=== PATIENT | female | born 1990 | race American Indian/Alaskan Native ===

== ENCOUNTER 2016-11-01 05:05 | Emergency (ER) | payer OTHER ==
[2016-11-01 06:09] VITALS: BP 129/82
[2016-11-01 06:46] LABS: Basophils % (Auto) 0.4 % (0.0-1.8); Eosinophils % (Auto) 3.3 % (0.0-4.3); Hematocrit 38.2 % (30.3-42.9); Hemoglobin 13.3 gm/dl (10.1-14.3); Mean Corpuscular HGB Conc 35 % (30-34); Mean Corpuscular Hemoglobin 29 pg (28-32); Mean Corpuscular Volume 82 fl (79-97); Platelet Count 270 K/mm3 (140-440); Red Blood Count 4.64 M/mm3 (3.65-5.03); White Blood Count 8.5 K/mm3 (4.5-11.0)
[2016-11-01 07:10] LABS: Bacteria,Urine 1+ /HPF (Negative); Bilirubin,Urine NEG (Negative); Blood,Urine NEG (Negative); Ketones,Urine NEG (Negative); Leukocyte Esterase,Urine LG (Negative); Mucus,Urine FEW /HPF; Nitrite,Urine POS (Negative); Protein,Urine <15 mg/dL mg/dL (Negative); Urobilinogen,Urine < 2.0 mg/dL (<2.0)
[2016-11-01 07:12] LABS: Alanine Aminotransferase 18 units/L (7-56); Albumin 4.2 g/dL (3.9-5); Albumin/Globulin Ratio 1.4 %; Alkaline Phosphatase 81 units/L (35-129); Anion Gap 19 mmol/L; Blood Urea Nitrogen 10 mg/dL (7-17); Calcium 9.3 mg/dL (8.4-10.2); Carbon Dioxide 23 mmol/L (22-30); Chloride 100.4 mmol/L (98-107); Glucose 97 mg/dL (65-100); Lipase 22 units/L (13-60); Potassium 4.3 mmol/L (3.6-5.0); Sodium 138 mmol/L (137-145); Total Protein 7.3 g/dL (6.3-8.2)
--- NOTE | 2016-11-01 09:54 | Emergency Department Report ---
ED Abdominal Pain HPI - General Chief Complaint: Abdominal Pain Stated Complaint: ABDOMINAL PAIN Time Seen by Provider: 11/01/16 09:49 Source: patient Mode of arrival: Ambulatory Limitations: No Limitations - History of Present Illness Location: suprapubic Radiation: suprapubic Migration to: no migration Severity scale (0 -10): 3 Quality: cramping, burning Improves With: nothing Associated Symptoms: nausea, vomiting, dysuria, hematuria. denies: diarrhea, anorexia, syncope - Related Data Home Medications Medication Instructions Recorded Confirmed Last Taken Albuterol Sulfate [Albuterol 0.63%] 3 ml IH PRN PRN 03/15/14 03/15/14 02/08/14 Previous Rx's Medication Instructions Recorded Last Taken Type HYDROcodone/APAP 5-325 [[place] 1 each PO Q6HR PRN #14 tablet 06/23/14 Unknown Rx 5-325 mg TAB] Ondansetron [Zofran] 4 mg PO Q6HR PRN #20 tablet 06/23/14 Unknown Rx Cetirizine HCl [ZyrTEC] 10 mg PO QDAY #30 capsule 06/06/16 Unknown Rx Fluticasone [Flonase] 1 spray NS QDAY #1 bottle 06/06/16 Unknown Rx Ibuprofen [Motrin 600 MG tab] 600 mg PO Q8H PRN #30 tablet 06/06/16 Unknown Rx Phenazopyridine [Pyridium] 200 mg PO BID #8 tab 11/01/16 Unknown Rx Sulfamethoxazole/Trimethoprim 1 each PO BID #14 tablet 11/01/16 Unknown Rx [Bactrim DS TAB] Allergies Allergy/AdvReac Type Severity Reaction Status Date / Time banana [Banana] Allergy Itching Verified 03/15/14 19:53 stephany flavor Allergy Rash Verified 03/15/14 19:53 onion Allergy Itching Verified 03/15/14 19:53 peanut Allergy Shortness Verified 03/15/14 19:53 of Breath ED Review of Systems ROS: Stated complaint: ABDOMINAL PAIN Other details as noted in HPI Constitutional: chills, fever Eyes: denies: eye pain, eye discharge, vision change ENT: denies: ear pain, throat pain Respiratory: denies: cough, shortness of breath, wheezing Cardiovascular: denies: chest pain, palpitations Endocrine: no symptoms reported Gastrointestinal: abdominal pain, nausea, vomiting. denies: diarrhea Genitourinary: urgency, dysuria, hematuria. denies: discharge, abnormal menses , dyspareunia Musculoskeletal: denies: back pain, joint swelling, arthralgia Skin: denies: rash, lesions Neurological: denies: headache, weakness, paresthesias Psychiatric: denies: anxiety, depression Hematological/Lymphatic: denies: easy bleeding, easy bruising ED Past Medical Hx - Past Medical History Previous Medical History?: Yes Hx Hypertension: No Hx Congestive Heart Failure: No Hx Diabetes: No Hx Deep Vein Thrombosis: No Hx Renal Disease: No Hx Sickle Cell Disease: No Hx Seizures: No Hx Asthma: Yes (Albuterol inhaler.) Hx COPD: No Hx HIV: No - Surgical History Past Surgical History?: No - Social History Smoking Status: Never Smoker - Medications Home Medications: Home Medications Medication Instructions Recorded Confirmed Last Taken Type Albuterol Sulfate [Albuterol 0.63%] 3 ml IH PRN PRN 03/15/14 03/15/14 02/08/14 History HYDROcodone/APAP 5-325 [[place] 1 each PO Q6HR PRN #14 tablet 06/23/14 Unknown Rx 5-325 mg TAB] Ondansetron [Zofran] 4 mg PO Q6HR PRN #20 tablet 06/23/14 Unknown Rx Cetirizine HCl [ZyrTEC] 10 mg PO QDAY #30 capsule 06/06/16 Unknown Rx Fluticasone [Flonase] 1 spray NS QDAY #1 bottle 06/06/16 Unknown Rx Ibuprofen [Motrin 600 MG tab] 600 mg PO Q8H PRN #30 tablet 06/06/16 Unknown Rx Phenazopyridine [Pyridium] 200 mg PO BID #8 tab 11/01/16 Unknown Rx Sulfamethoxazole/Trimethoprim 1 each PO BID #14 tablet 11/01/16 Unknown Rx [Bactrim DS TAB] ED Physical Exam - General Limitations: No Limitations General appearance: alert, in no apparent distress - Head Head exam: Present: atraumatic, normocephalic - Eye Eye exam: Present: normal appearance - ENT ENT exam: Present: mucous membranes moist - Neck Neck exam: Present: normal inspection - Respiratory Respiratory exam: Present: normal lung sounds bilaterally. Absent: respiratory distress - Cardiovascular Cardiovascular Exam: Present: regular rate, normal rhythm. Absent: systolic murmur, diastolic murmur, rubs, gallop - GI/Abdominal GI/Abdominal exam: Present: soft, tenderness (mild suprapubic tenderness on percussion), normal bowel sounds. Absent: distended, guarding, rebound, rigid - Rectal Rectal exam: Present: deferred - External exam: Present: other (deferred) - Extremities Exam Extremities exam: Present: normal inspection - Back Exam Back exam: Present: normal inspection. Absent: CVA tenderness (R), CVA tenderness (L) - Neurological Exam Neurological exam: Present: alert, oriented X3 - Psychiatric Psychiatric exam: Present: normal affect, normal mood - Skin Skin exam: Present: warm, dry, intact, normal color. Absent: rash ED Course Vital Signs 11/01/16 06:06 Temperature 98.1 F Pulse Rate 104 H Respiratory 18 Rate Blood Pressure 129/82 O2 Sat by Pulse 100 Oximetry ED Medical Decision Making - Lab Data Result diagrams: 11/01/16 06:35 11/01/16 06:35 Critical care attestation.: If time is entered above; I have spent that time in minutes in the direct care of this critically ill patient, excluding procedure time. ED Disposition Clinical Impression: Cystitis Disposition: DISCHARGED TO HOME OR SELFCARE Is pt being admited?: No Condition: Stable Instructions: Abdominal Pain (ED) Prescriptions: Phenazopyridine [Pyridium] 200 mg PO BID #8 tab Sulfamethoxazole/Trimethoprim [Bactrim DS TAB] 1 each PO BID #14 tablet Referrals: PRIMARY CARE, [Primary Care Provider] - 3-5 Days Forms: Work/School Release Form(ED)
== END 2016-11-01 10:10 | disposition home or self-care (01) ==
LOC: ED 05:05
DX: N30.90 Cystitis, unspecified without hematuria (principal); J45.909 Unspecified asthma, uncomplicated; Z91.018 Allergy to other foods; Z91.010 Allergy to peanuts
CPT/HCPCS: 36415; 80053; 81001; 81025; 83690; 85025; 99283

== ENCOUNTER 2017-02-07 14:57 | Emergency (ER) | payer SELFPAY ==
[2017-02-07 15:21] VITALS: BP 143/97
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
[2017-02-07 15:46] LABS: Basophils % (Auto) 0.5 % (0.0-1.8); Eosinophils % (Auto) 3.5 % (0.0-4.3); Hematocrit 40.5 % (30.3-42.9); Hemoglobin 13.5 gm/dl (10.1-14.3); Mean Corpuscular HGB Conc 33 % (30-34); Mean Corpuscular Hemoglobin 28 pg (28-32); Mean Corpuscular Volume 83 fl (79-97); Platelet Count 272 K/mm3 (140-440); Red Blood Count 4.88 M/mm3 (3.65-5.03); Red Cell Distribution Width 13.6 % (13.2-15.2); White Blood Count 9.6 K/mm3 (4.5-11.0)
[2017-02-07 15:56] LABS: INR 0.93 (0.87-1.13)
[2017-02-07 15:57] LABS: Partial Thromboplastin Time 28.5 Sec. (24.2-36.6)
[2017-02-07 16:03] LABS: Alanine Aminotransferase 13 units/L (7-56); Albumin 4.6 g/dL (3.9-5); Albumin/Globulin Ratio 1.4 %; Alkaline Phosphatase 59 units/L (35-129); Anion Gap 17 mmol/L; BUN/Creatinine Ratio 16.66; Blood Urea Nitrogen 15 mg/dL (7-17); Calcium 9.6 mg/dL (8.4-10.2); Carbon Dioxide 26 mmol/L (22-30); Chloride 101.6 mmol/L (98-107); Glucose 80 mg/dL (65-100); Sodium 141 mmol/L (137-145); Total Protein 7.8 g/dL (6.3-8.2)
[2017-02-07 17:52] LABS: Urine Drugs of Abuse Note Disclamer
--- NOTE | 2017-02-07 17:54 | Cat Scan Report ---
FINAL REPORT EXAM: CT HEAD/BRAIN WO CON HISTORY: chi, dizziness, syncope TECHNIQUE: CT examination of the head without IV contrast PRIORS: None FINDINGS: Slight mucosal thickening left maxillary sinus and moderate mucosal thickening left ethmoid sinus.No acute air-fluid level visualized in the included air-filled sinuses. Bone windows demonstrate no acute fracture. The brain is without mass, mass effect, hemorrhage, or acute infarct. There is no extra-axial intracranial bleed, brain bleed, or midline shift. The ventricles and sulci are age-appropriate. IMPRESSION: No acute CVA, intracranial bleed, or brain mass
[2017-02-07 18:05] LABS: Bacteria,Urine 2+ /HPF (Negative); Bilirubin,Urine NEG (Negative); Blood,Urine SM (Negative); Ketones,Urine NEG (Negative); Leukocyte Esterase,Urine TR (Negative); Mucus,Urine 1+ /HPF; Nitrite,Urine NEG (Negative); Protein,Urine <15 mg/dL mg/dL (Negative); Urobilinogen,Urine < 2.0 mg/dL (<2.0)
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
--- NOTE | 2017-02-10 00:31 | ED Elopement Review ---
ED Pt Elopement review - Results review Lab results: Laboratory Tests 02/07/17 02/07/17 02/07/17 15:37 15:37 15:37 WBC 9.6 RBC 4.88 Hgb 13.5 Hct 40.5 MCV 83 MCH 28 MCHC 33 RDW 13.6 Plt Count 272 Lymph % (Auto) 29.0 [place] % (Auto) 4.9 Eos % (Auto) 3.5 Baso % (Auto) 0.5 Lymph # 2.8 [place] # 0.5 Eos # 0.3 Baso # 0.0 Seg Neutrophils % 62.1 Seg Neutrophils # 5.9 PT 12.9 INR 0.93 APTT 28.5 Sodium 141 Potassium 4.0 Chloride 101.6 Carbon Dioxide 26 Anion Gap 17 BUN 15 Creatinine 0.9 Estimated GFR > 60 BUN/Creatinine Ratio 16.66 Glucose 80 Calcium 9.6 Total Bilirubin 0.20 AST 16 ALT 13 Alkaline Phosphatase 59 Total Protein 7.8 Albumin 4.6 Albumin/Globulin Ratio 1.4 HCG, Qual Urine Color Urine Turbidity Urine pH Ur Specific [place] Urine Protein Urine Glucose (UA) Urine Ketones Urine Blood Urine Nitrite Urine Bilirubin Urine Urobilinogen Ur Leukocyte Esterase Urine WBC (Auto) Urine RBC (Auto) U Epithel Cells (Auto) Urine Bacteria (Auto) Urine Mucus Urine Opiates Screen Urine Methadone Screen Ur Barbiturates Screen Ur Phencyclidine Scrn Ur Amphetamines Screen U Benzodiazepines Scrn Urine Cocaine Screen U Marijuana (THC) Screen Drugs of Abuse Note Plasma/Serum Alcohol 02/07/17 02/07/17 02/07/17 15:37 15:37 17:45 WBC RBC Hgb Hct MCV MCH MCHC RDW Plt Count Lymph % (Auto) [place] % (Auto) Eos % (Auto) Baso % (Auto) Lymph # [place] # Eos # Baso # Seg Neutrophils % Seg Neutrophils # PT INR APTT Sodium Potassium Chloride Carbon Dioxide Anion Gap BUN Creatinine Estimated GFR BUN/Creatinine Ratio Glucose Calcium Total Bilirubin AST ALT Alkaline Phosphatase Total Protein Albumin Albumin/Globulin Ratio HCG, Qual Negative Urine Color Yellow Urine Turbidity Slightly-cloudy Urine pH 5.0 Ur Specific [place] 1.017 Urine Protein <15 mg/dl Urine Glucose (UA) Neg Urine Ketones Neg Urine Blood Sm Urine Nitrite Neg Urine Bilirubin Neg Urine Urobilinogen < 2.0 Ur Leukocyte Esterase Tr Urine WBC (Auto) 7.0 H Urine RBC (Auto) 2.0 U Epithel Cells (Auto) 6.0 Urine Bacteria (Auto) 2+ Urine Mucus 1+ Urine Opiates Screen Urine Methadone Screen Ur Barbiturates Screen Ur Phencyclidine Scrn Ur Amphetamines Screen U Benzodiazepines Scrn Urine Cocaine Screen U Marijuana (THC) Screen Drugs of Abuse Note Plasma/Serum Alcohol < 0.01 02/07/17 17:45 WBC RBC Hgb Hct MCV MCH MCHC RDW Plt Count Lymph % (Auto) [place] % (Auto) Eos % (Auto) Baso % (Auto) Lymph # [place] # Eos # Baso # Seg Neutrophils % Seg Neutrophils # PT INR APTT Sodium Potassium Chloride Carbon Dioxide Anion Gap BUN Creatinine Estimated GFR BUN/Creatinine Ratio Glucose Calcium Total Bilirubin AST ALT Alkaline Phosphatase Total Protein Albumin Albumin/Globulin Ratio HCG, Qual Urine Color Urine Turbidity Urine pH Ur Specific [place] Urine Protein Urine Glucose (UA) Urine Ketones Urine Blood Urine Nitrite Urine Bilirubin Urine Urobilinogen Ur Leukocyte Esterase Urine WBC (Auto) Urine RBC (Auto) U Epithel Cells (Auto) Urine Bacteria (Auto) Urine Mucus Urine Opiates Screen Presumptive negative Urine Methadone Screen Presumptive negative Ur Barbiturates Screen Presumptive negative Ur Phencyclidine Scrn Presumptive negative Ur Amphetamines Screen Presumptive negative U Benzodiazepines Scrn Presumptive negative Urine Cocaine Screen Presumptive negative U Marijuana (THC) Screen Presumptive negative Drugs of Abuse Note Disclamer Plasma/Serum Alcohol - Call Back decision Pt Call Back Decision: Pt to F/U with PMD
== END 2017-02-08 00:55 | disposition left against medical advice (07) ==
LOC: ED 14:57
DX: R55 Syncope and collapse (principal); R42 Dizziness and giddiness; Z53.21 Procedure and treatment not carried out due to patient leaving prior to being seen by health care provider
CPT/HCPCS: 36415; 70450; 72125; 80053; 80307; 81001; 84703; 85025; 85610; 85730; G0480; 80320

== ENCOUNTER 2017-09-01 01:17 | Emergency (ER) | payer SELFPAY ==
[2017-09-01] MEDS ORDERED: NORCO 7.5/325 PO ONE (01:46)
[2017-09-01] MEDS ORDERED: ZOFRAN ODT PO ONE (01:46)
[2017-09-01 01:56] LABS: Basophils % (Auto) 0.3 % (0.0-1.8); Eosinophils # (Auto) 0.2 K/mm3 (0.0-0.4); Eosinophils % (Auto) 3.1 % (0.0-4.3); Hematocrit 35.5 % (30.3-42.9); Hemoglobin 12.2 gm/dl (10.1-14.3); Lymphocytes # (Auto) 3.1 K/mm3 (1.2-5.4); Lymphocytes % (Auto) 38.7 % (13.4-35.0); Mean Corpuscular HGB Conc 35 % (30-34); Mean Corpuscular Hemoglobin 28 pg (28-32); Mean Corpuscular Volume 82 fl (79-97); Monocytes # (Auto) 0.4 K/mm3 (0.0-0.8); Monocytes % (Auto) 5.3 % (0.0-7.3); Platelet Count 248 K/mm3 (140-440); Red Blood Count 4.34 M/mm3 (3.65-5.03); Red Cell Distribution Width 13.2 % (13.2-15.2)
[2017-09-01 02:08] LABS: Bilirubin,Urine NEG (Negative); Blood,Urine NEG (Negative); Color,Urine Straw (Yellow); Mucus,Urine FEW /HPF; Protein,Urine <15 mg/dL mg/dL (Negative); Urobilinogen,Urine < 2.0 mg/dL (<2.0)
[2017-09-01 02:32] LABS: HCG Qualitative,Urine Negative (Negative)
[2017-09-01 02:53] LABS: Alanine Aminotransferase 13 units/L (7-56); Albumin 3.8 g/dL (3.9-5); BUN/Creatinine Ratio 19; Blood Urea Nitrogen 17 mg/dL (7-17); Calcium 8.4 mg/dL (8.4-10.2); Hemolysis Index 8
--- NOTE | 2017-09-01 03:00 | Ultrasound Report ---
FINAL REPORT EXAM: US TRANSVAGINAL HISTORY: severe sudden suprapub/r pelvic pain TECHNIQUE: Transvaginal imaging was obtained of the pelvis along with Doppler interrogation of the adnexa. FINDINGS: The uterus is retroflexed measuring 7.4 cm x 3.9 cm x 3.9 cm. The endometrial thickness is 3.2 mm. The myometrium is homogeneous. There minimal free fluid in the cul-de-sac. The right ovary measures 2.9 cm x 2.6 cm x 2.4 cm and reveals normal blood flow. There are benign-appearing follicles in right ovary measuring up to 1.8 cm in diameter. The left ovary measures 2.4 cm x 2.2 cm x 1.7 cm. There are small follicles in left ovary. The blood flow is normal. IMPRESSION: Benign-appearing follicles in both ovaries. No evidence of ovarian torsion. Minimal free fluid in cul-de-sac.
--- NOTE | 2017-09-01 03:02 | Ultrasound Report ---
FINAL REPORT EXAM: US PELVIC COMPLETE HISTORY: severe sudden suprapub/r pelvic pain TECHNIQUE: Routine transabdominal images were obtained of the pelvis. Doppler interrogation of the adnexa was obtained. FINDINGS: The uterus is retroflexed measures 7.4 cm x 3.9 cm x 3.9 cm. The endometrial thickness is 3.2 mm. The myometrium is homogeneous. There is minimal free fluid in cul-de-sac. The right ovary measures 2.9 cm x 2.6 cm x 2.4 cm and contains benign-appearing follicles measuring 1.8 cm in diameter. The blood flow is normal to the right ovary. The left ovary measures 2.4 cm x 2.2 cm x 1.7 cm. There are small benign-appearing follicles in left ovary. The blood flow is normal to the left ovary. IMPRESSION: Benign-appearing follicles in both ovaries. No evidence of ovarian torsion Minimal free fluid in cul-de-sac.
--- NOTE | 2017-09-01 04:13 | Emergency Department Report ---
ED Abdominal Pain HPI - General Chief Complaint: Abdominal Pain Stated Complaint: ABD PAIN Time Seen by Provider: 09/01/17 01:40 Source: patient, family, EMS Mode of arrival: Stretcher Limitations: No Limitations - History of Present Illness Initial Comments: Patient is a 27-year-old [place] female is presenting with sudden onset of lower abdominal pain prior to arrival. Patient states that she was sitting at home with family and started feeling pain. Patient states that the pain as a 10 out of 10 in severity and is the right pelvic region. Patient denies any vaginal bleeding or vaginal discharge or dysuria diarrhea nausea vomiting at this time. Patient also denies any trauma. Severity scale (0 -10): 10 - Related Data Home Medications Medication Instructions Recorded Confirmed Last Taken Albuterol Sulfate [Albuterol 0.63%] 3 ml IH PRN PRN 03/15/14 03/15/14 02/08/14 Previous Rx's Medication Instructions Recorded Last Taken Type HYDROcodone/APAP 5-325 [[place] 1 each PO Q6HR PRN #14 tablet 06/23/14 Unknown Rx 5-325 mg TAB] Ondansetron [Zofran] 4 mg PO Q6HR PRN #20 tablet 06/23/14 Unknown Rx Cetirizine HCl [ZyrTEC] 10 mg PO QDAY #30 capsule 06/06/16 Unknown Rx Fluticasone [Flonase] 1 spray NS QDAY #1 bottle 06/06/16 Unknown Rx Ibuprofen [Motrin 600 MG tab] 600 mg PO Q8H PRN #30 tablet 06/06/16 Unknown Rx Phenazopyridine [Pyridium] 200 mg PO BID #8 tab 11/01/16 Unknown Rx Sulfamethoxazole/Trimethoprim 1 each PO BID #14 tablet 11/01/16 Unknown Rx [Bactrim DS TAB] HYDROcodone/APAP 5-325 [[place] 1 each PO Q4HR PRN #12 tablet 09/01/17 Unknown Rx 5/325] Ibuprofen [Motrin] 800 mg PO Q8HR PRN #20 tablet 09/01/17 Unknown Rx Allergies Allergy/AdvReac Type Severity Reaction Status Date / Time banana [Banana] Allergy Itching Verified 03/15/14 19:53 stephany flavor Allergy Rash Verified 03/15/14 19:53 onion Allergy Itching Verified 03/15/14 19:53 peanut Allergy Shortness Verified 03/15/14 19:53 of Breath ED Review of Systems ROS: Stated complaint: ABD PAIN Other details as noted in HPI Comment: All other systems reviewed and negative ED Past Medical Hx - Past Medical History Hx Hypertension: No Hx Congestive Heart Failure: No Hx Diabetes: No Hx Deep Vein Thrombosis: No Hx Renal Disease: No Hx Sickle Cell Disease: No Hx Seizures: No Hx Asthma: Yes (Albuterol inhaler.) Hx COPD: No Hx HIV: No - Social History Smoking Status: Never Smoker Substance Use Type: None - Medications Home Medications: Home Medications Medication Instructions Recorded Confirmed Last Taken Type Albuterol Sulfate [Albuterol 0.63%] 3 ml IH PRN PRN 03/15/14 03/15/14 02/08/14 History HYDROcodone/APAP 5-325 [[place] 1 each PO Q6HR PRN #14 tablet 06/23/14 Unknown Rx 5-325 mg TAB] Ondansetron [Zofran] 4 mg PO Q6HR PRN #20 tablet 06/23/14 Unknown Rx Cetirizine HCl [ZyrTEC] 10 mg PO QDAY #30 capsule 06/06/16 Unknown Rx Fluticasone [Flonase] 1 spray NS QDAY #1 bottle 06/06/16 Unknown Rx Ibuprofen [Motrin 600 MG tab] 600 mg PO Q8H PRN #30 tablet 06/06/16 Unknown Rx Phenazopyridine [Pyridium] 200 mg PO BID #8 tab 11/01/16 Unknown Rx Sulfamethoxazole/Trimethoprim 1 each PO BID #14 tablet 11/01/16 Unknown Rx [Bactrim DS TAB] HYDROcodone/APAP 5-325 [[place] 1 each PO Q4HR PRN #12 tablet 09/01/17 Unknown Rx 5/325] Ibuprofen [Motrin] 800 mg PO Q8HR PRN #20 tablet 09/01/17 Unknown Rx ED Physical Exam - General Limitations: No Limitations General appearance: alert, in no apparent distress - Head Head exam: Present: atraumatic, normocephalic - Eye Eye exam: Present: normal appearance - ENT ENT exam: Present: mucous membranes moist - Neck Neck exam: Present: normal inspection - Respiratory Respiratory exam: Present: normal lung sounds bilaterally. Absent: respiratory distress, wheezes, rales, rhonchi - Cardiovascular Cardiovascular Exam: Present: regular rate, normal rhythm. Absent: systolic murmur, diastolic murmur, rubs, gallop - GI/Abdominal GI/Abdominal exam: Present: soft, tenderness (patient with suprapubic and right lower abdominal tenderness abdomen is soft and nonrigid), normal bowel sounds. Absent: distended, guarding, rebound, rigid - Extremities Exam Extremities exam: Present: normal inspection - Back Exam Back exam: Present: normal inspection - Neurological Exam Neurological exam: Present: alert, oriented X3 - Psychiatric Psychiatric exam: Present: normal affect, normal mood - Skin Skin exam: Present: warm, dry, intact, normal color. Absent: rash ED Course Vital Signs 09/01/17 09/01/17 09/01/17 01:28 01:30 01:34 Temperature 98.9 F Pulse Rate 85 81 100 H Respiratory 15 15 Rate Blood Pressure 114/70 114/70 O2 Sat by Pulse 99 Oximetry 09/01/17 09/01/17 01:50 02:01 Temperature Pulse Rate 97 H Respiratory 14 Rate Blood Pressure 114/70 114/70 O2 Sat by Pulse 91 90 Oximetry ED Medical Decision Making - Lab Data Result diagrams: 09/01/17 01:43 09/01/17 01:43 Lab Results 09/01/17 09/01/17 09/01/17 Range/Units 01:43 01:43 01:56 WBC 7.9 (4.5-11.0) K/mm3 RBC 4.34 (3.65-5.03) M/mm3 Hgb 12.2 (10.1-14.3) gm/dl Hct 35.5 (30.3-42.9) % MCV 82 (79-97) fl MCH 28 (28-32) pg MCHC 35 H (30-34) % RDW 13.2 (13.2-15.2) % Plt Count 248 (140-440) K/mm3 Lymph % (Auto) 38.7 H (13.4-35.0) % [place] % (Auto) 5.3 (0.0-7.3) % Eos % (Auto) 3.1 (0.0-4.3) % Baso % (Auto) 0.3 (0.0-1.8) % Lymph # 3.1 (1.2-5.4) K/mm3 [place] # 0.4 (0.0-0.8) K/mm3 Eos # 0.2 (0.0-0.4) K/mm3 Baso # 0.0 (0.0-0.1) K/mm3 Seg Neutrophils % 52.6 (40.0-70.0) % Seg Neutrophils # 4.2 (1.8-7.7) K/mm3 Sodium 136 L (137-145) mmol/L Potassium 3.8 (3.6-5.0) mmol/L Chloride 98.9 (98-107) mmol/L Carbon Dioxide 26 (22-30) mmol/L Anion Gap 15 mmol/L BUN 17 (7-17) mg/dL Creatinine 0.9 (0.7-1.2) mg/dL Estimated GFR > 60 ml/min BUN/Creatinine Ratio 19 % Glucose 97 (65-100) mg/dL Calcium 8.4 (8.4-10.2) mg/dL Total Bilirubin < 0.20 (0.1-1.2) mg/dL AST 18 (5-40) units/L ALT 13 (7-56) units/L Alkaline Phosphatase 62 (35-129) units/L Total Protein 6.7 (6.3-8.2) g/dL Albumin 3.8 L (3.9-5) g/dL Albumin/Globulin Ratio 1.3 % Urine Color Straw (Yellow) Urine Turbidity Clear (Clear) Urine pH 6.0 (5.0-7.0) Ur Specific [place] 1.012 (1.003-1.030) Urine Protein <15 mg/dl (Negative) mg/dL Urine Glucose (UA) Neg (Negative) mg/dL Urine Ketones Neg (Negative) mg/dL Urine Blood Neg (Negative) Urine Nitrite Neg (Negative) Urine Bilirubin Neg (Negative) Urine Urobilinogen < 2.0 (<2.0) mg/dL Ur Leukocyte Esterase Neg (Negative) Urine WBC (Auto) 1.0 (0.0-6.0) /HPF Urine RBC (Auto) 1.0 (0.0-6.0) /HPF U Epithel Cells (Auto) 1.0 (0-13.0) /HPF Urine Mucus Few /HPF Urine HCG, Qual Negative (Negative) - Radiology Data Radiology results: report reviewed Ultrasound of pelvis shows no acute process except for some mild amounts of free fluid in the pelvis and small bilateral ovarian cyst - Medical Decision Making The patient most likely had a ovarian cyst ruptured and patient will be discharged at this time. Critical care attestation.: If time is entered above; I have spent that time in minutes in the direct care of this critically ill patient, excluding procedure time. ED Disposition Clinical Impression: Ovarian cyst rupture Disposition: DC-01 TO HOME OR SELFCARE Is pt being admited?: No Does the pt Need Aspirin: No Condition: Stable Instructions: Ovarian Cyst (ED) Referrals: HOLLI ALVA MD [Staff Physician] - 3-5 Days
[2017-09-01 04:36] VITALS: BP 118/72
== END 2017-09-01 04:36 | disposition home or self-care (01) ==
LOC: ED 01:17
DX: N83.202 Unspecified ovarian cyst, left side (principal); N83.201 Unspecified ovarian cyst, right side; J45.909 Unspecified asthma, uncomplicated; Z91.018 Allergy to other foods; Z91.010 Allergy to peanuts
CPT/HCPCS: 36415; 76830; 76856; 80053; 81001; 81025; 85025; 99284; Q0162

== ENCOUNTER 2017-10-26 11:01 | Emergency (ER) | payer MEDICAID ==
[2017-10-26] MEDS ORDERED: NACL 0.9% 1000 ML 1,000 ML IV ONE (12:43)
--- NOTE | 2017-10-26 12:47 | Emergency Department Report ---
Chief Complaint: Nausea/Vomiting/Diarrhea Stated Complaint: NAUSEA/VOMITING/ - HPI History of Present Illness: 27-year-old female presents to the emergency department with complaint of ongoing nausea, vomiting, dehydration and some abdominal discomfort while . The patient believes she is about 8 weeks . 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 With this she is with one previous miscarriage and one live child. She has not taken anything for her symptoms on presentation. No recent travel or sick contacts at home. She denies any vaginal bleeding or discharge. - ROS Review of Systems: Positive for nausea, vomiting, abdominal discomfort Negative for vaginal bleeding, vaginal discharge, fever, back pain - Exam Vital Signs: Vital Signs 10/26/17 11:06 Temperature 98.4 F Pulse Rate 111 H Blood Pressure 119/85 O2 Sat by Pulse 97 Oximetry Physical Exam: Patient appears uncomfortable secondary to the nausea and vomiting and is pending over a vomit bag. Heart and lung sounds normal to auscultation. MSE screening note: Focused history and physical exam performed. Due to findings the following was ordered: I have ordered a CBC, CMP, quantitative and a urinalysis. An IV will be placed and she will be started on IV fluid. The patient will be seen by the Main ED side ED Disposition for MSE Condition: Stable Referrals: MAURY CR CNM [Primary Care Provider] - 3-5 Days
[2017-10-26] MEDS ORDERED: NACL 0.9% 1000 ML 1,000 ML ONE ×2 (12:55)
[2017-10-26] MEDS ORDERED: ZOFRAN IV ONE (13:34)
[2017-10-26] MEDS ORDERED: ZOFRAN ONE ×2 (13:38)
[2017-10-26 13:46] LABS: Basophils % (Auto) 0.3 % (0.0-1.8); Eosinophils % (Auto) 0.2 % (0.0-4.3); Hematocrit 39.7 % (30.3-42.9); Hemoglobin 13.7 gm/dl (10.1-14.3); Lymphocytes # (Auto) 1.4 K/mm3 (1.2-5.4); Lymphocytes % (Auto) 12.6 % (13.4-35.0); Mean Corpuscular HGB Conc 34 % (30-34); Mean Corpuscular Hemoglobin 28 pg (28-32); Mean Corpuscular Volume 82 fl (79-97); Monocytes # (Auto) 0.6 K/mm3 (0.0-0.8); Monocytes % (Auto) 5.6 % (0.0-7.3); Platelet Count 263 K/mm3 (140-440); Red Blood Count 4.85 M/mm3 (3.65-5.03); Red Cell Distribution Width 12.7 % (13.2-15.2)
[2017-10-26 14:27] LABS: Alanine Aminotransferase 51 units/L (7-56); Albumin 3.9 g/dL (3.9-5); BUN/Creatinine Ratio 22; Blood Urea Nitrogen 13 mg/dL (7-17); Calcium 9.6 mg/dL (8.4-10.2); Hemolysis Index 2
--- NOTE | 2017-10-26 15:59 | Emergency Department Report ---
ED General Adult HPI - General Chief complaint: Nausea/Vomiting/Diarrhea Stated complaint: NAUSEA/VOMITING/ Time Seen by Provider: 10/26/17 13:30 Source: patient Mode of arrival: Ambulatory Limitations: No Limitations - History of Present Illness Initial comments: 27 year old female who states she is about 8 weeks . She is received no care from an main entree cook and cashier yet. However she's been going to [facility] who confirmed that she was . She has not had a prior ultrasound. She complains of vomiting for the last 2 weeks. She is not complaining of pelvic or abdominal pain. She denies bleeding. She is not very communicative right now at all. She does admit to weakness. She does look somewhat dehydrated. -: Gradual, days(s) Associated Symptoms: denies other symptoms, nausea/vomiting, weakness - Related Data Home Medications Medication Instructions Recorded Confirmed Last Taken Albuterol Sulfate [Albuterol 0.63%] 3 ml IH PRN PRN 03/15/14 03/15/14 02/08/14 Previous Rx's Medication Instructions Recorded Last Taken Type HYDROcodone/APAP 5-325 [[place] 1 each PO Q6HR PRN #14 tablet 06/23/14 Unknown Rx 5-325 mg TAB] Ondansetron [Zofran] 4 mg PO Q6HR PRN #20 tablet 06/23/14 Unknown Rx Cetirizine HCl [ZyrTEC] 10 mg PO QDAY #30 capsule 06/06/16 Unknown Rx Fluticasone [Flonase] 1 spray NS QDAY #1 bottle 06/06/16 Unknown Rx Ibuprofen [Motrin 600 MG tab] 600 mg PO Q8H PRN #30 tablet 06/06/16 Unknown Rx Phenazopyridine [Pyridium] 200 mg PO BID #8 tab 11/01/16 Unknown Rx Sulfamethoxazole/Trimethoprim 1 each PO BID #14 tablet 11/01/16 Unknown Rx [Bactrim DS TAB] HYDROcodone/APAP 5-325 [[place] 1 each PO Q4HR PRN #12 tablet 09/01/17 Unknown Rx 5/325] Ibuprofen [Motrin] 800 mg PO Q8HR PRN #20 tablet 09/01/17 Unknown Rx Ondansetron [Zofran Odt] 4 mg PO Q6H #7 tab.rapdis 10/26/17 Unknown Rx Allergies Allergy/AdvReac Type Severity Reaction Status Date / Time banana [Banana] Allergy Itching Verified 03/15/14 19:53 stephany flavor Allergy Rash Verified 03/15/14 19:53 onion Allergy Itching Verified 03/15/14 19:53 peanut Allergy Shortness Verified 03/15/14 19:53 of Breath ED Review of Systems ROS: Stated complaint: NAUSEA/VOMITING/ Other details as noted in HPI Comment: Unobtainable due to pts medical conditions (patient cooperation but denies fever or chills symptoms and abdominal pain.) ED Past Medical Hx - Past Medical History Hx Hypertension: No Hx Congestive Heart Failure: No Hx Diabetes: No Hx Deep Vein Thrombosis: No Hx Renal Disease: No Hx Sickle Cell Disease: No Hx Seizures: No Hx Asthma: Yes (Albuterol inhaler.) Hx COPD: No Hx HIV: No - Social History Smoking Status: Never Smoker Substance Use Type: None - Medications Home Medications: Home Medications Medication Instructions Recorded Confirmed Last Taken Type Albuterol Sulfate [Albuterol 0.63%] 3 ml IH PRN PRN 03/15/14 03/15/14 02/08/14 History HYDROcodone/APAP 5-325 [[place] 1 each PO Q6HR PRN #14 tablet 06/23/14 Unknown Rx 5-325 mg TAB] Ondansetron [Zofran] 4 mg PO Q6HR PRN #20 tablet 06/23/14 Unknown Rx Cetirizine HCl [ZyrTEC] 10 mg PO QDAY #30 capsule 06/06/16 Unknown Rx Fluticasone [Flonase] 1 spray NS QDAY #1 bottle 06/06/16 Unknown Rx Ibuprofen [Motrin 600 MG tab] 600 mg PO Q8H PRN #30 tablet 06/06/16 Unknown Rx Phenazopyridine [Pyridium] 200 mg PO BID #8 tab 11/01/16 Unknown Rx Sulfamethoxazole/Trimethoprim 1 each PO BID #14 tablet 11/01/16 Unknown Rx [Bactrim DS TAB] HYDROcodone/APAP 5-325 [[place] 1 each PO Q4HR PRN #12 tablet 09/01/17 Unknown Rx 5/325] Ibuprofen [Motrin] 800 mg PO Q8HR PRN #20 tablet 09/01/17 Unknown Rx Ondansetron [Zofran Odt] 4 mg PO Q6H #7 tab.rapdis 10/26/17 Unknown Rx ED Physical Exam - General Limitations: Other (poor cooperation) General appearance: in no apparent distress - Head Head exam: Present: atraumatic, normocephalic - Eye Eye exam: Present: normal appearance - ENT ENT exam: Present: mucous membranes moist - Neck Neck exam: Present: normal inspection - Respiratory Respiratory exam: Present: normal lung sounds bilaterally. Absent: respiratory distress - Cardiovascular Cardiovascular Exam: Present: regular rate, normal rhythm. Absent: systolic murmur, diastolic murmur, rubs, gallop - GI/Abdominal GI/Abdominal exam: Present: soft, normal bowel sounds. Absent: distended, tenderness, guarding, rebound, rigid - Extremities Exam Extremities exam: Present: normal inspection - Back Exam Back exam: Present: normal inspection - Neurological Exam Neurological exam: Present: alert, oriented X3, CN II-XII intact. Absent: motor sensory deficit - Psychiatric Psychiatric exam: Present: normal mood, flat affect - Skin Skin exam: Present: warm, dry, intact, normal color. Absent: rash ED Course Vital Signs 10/26/17 10/26/17 10/26/17 11:06 18:50 18:53 Temperature 98.4 F Pulse Rate 111 H 110 H Respiratory 18 18 Rate Blood Pressure 119/85 Blood Pressure 114/76 [Left] O2 Sat by Pulse 97 99 99 Oximetry - Reevaluation(s) Reevaluation #1: Patient was given Zofran, IV fluids and tolerated a by mouth challenge. We're waiting for ultrasound results. It is expected that she will be discharged. 10/26/17 16:01 ED Medical Decision Making - Lab Data Result diagrams: 10/26/17 13:36 10/26/17 13:36 Laboratory Results - last 24 hr 10/26/17 10/26/17 10/26/17 13:36 13:36 13:36 WBC 10.8 RBC 4.85 Hgb 13.7 Hct 39.7 MCV 82 MCH 28 MCHC 34 RDW 12.7 L Plt Count 263 Lymph % (Auto) 12.6 L [place] % (Auto) 5.6 Eos % (Auto) 0.2 Baso % (Auto) 0.3 Lymph # 1.4 [place] # 0.6 Eos # 0.0 Baso # 0.0 Seg Neutrophils % 81.3 H Seg Neutrophils # 8.7 H Sodium 135 L Potassium 3.7 Chloride 99.2 Carbon Dioxide 22 Anion Gap 18 BUN 13 Creatinine 0.6 L Estimated GFR > 60 BUN/Creatinine Ratio 22 Glucose 88 Calcium 9.6 Total Bilirubin 1.00 AST 28 ALT 51 Alkaline Phosphatase 70 Total Protein 7.8 Albumin 3.9 Albumin/Globulin Ratio 1.0 HCG, Quant [id number] H - Radiology Data Radiology results: report reviewed (ultrasound demonstrated an 8 week intrauterine viable) Critical care attestation.: If time is entered above; I have spent that time in minutes in the direct care of this critically ill patient, excluding procedure time. ED Disposition Clinical Impression: Hyperemesis gravidarum Disposition: - TO HOME OR SELFCARE Is pt being admited?: No Does the pt Need Aspirin: No Condition: Stable Instructions: Hyperemesis Gravidarum (ED) Prescriptions: Ondansetron [Zofran Odt] 4 mg PO Q6H #7 tab.rapdis Referrals: MAURY CR CNM [Primary Care Provider] - 3-5 Days main entree cook and cashier associated with [facility] [Other] - 3-5 Days Time of Disposition: 18:00
[2017-10-26 18:54] VITALS: BP 114/76
--- NOTE | 2017-10-27 07:30 | Ultrasound Report ---
FINAL REPORT EXAM: US OB TRANSVAGINAL HISTORY: , first trimester, voming, pain COMPARISONS: 09/01/2017 FINDINGS: Transvaginal grayscale, color Doppler and M-mode first-trimester ultrasound Single living intrauterine with recorded cardiac activity of 185 beats per minute. [place]-rump length is approximately 23 millimeters, which corresponds to estimated gestational age of 9 weeks 0 days and delivery date of 05/31/2018. Normal yolk sac. No perigestational hemorrhage identified. Right ovarian functional likely corpus luteal cyst is noted. Overall normal ovarian echotexture with ovarian measurements of 3.8 x 1.5 x 2.4 cm on the right and 3 x 1.8 x 3.3 cm on the left. No significant free fluid in the pelvis. IMPRESSION: Single living intrauterine with estimated gestational age of 9 weeks 0 days and delivery date of 05/31/2018. No acute complication identified.
--- NOTE | 2017-10-27 07:30 | Ultrasound Report ---
FINAL REPORT EXAM: US OB TRANSVAGINAL HISTORY: , first trimester, voming, pain COMPARISONS: 09/01/2017 FINDINGS: Transvaginal grayscale, color Doppler and M-mode first-trimester ultrasound Single living intrauterine with recorded cardiac activity of 185 beats per minute. [place]-rump length is approximately 23 millimeters, which corresponds to estimated gestational age of 9 weeks 0 days and delivery date of 05/31/2018. Normal yolk sac. No perigestational hemorrhage identified. Right ovarian functional likely corpus luteal cyst is noted. Overall normal ovarian echotexture with ovarian measurements of 3.8 x 1.5 x 2.4 cm on the right and 3 x 1.8 x 3.3 cm on the left. No significant free fluid in the pelvis. IMPRESSION: Single living intrauterine with estimated gestational age of 9 weeks 0 days and delivery date of 05/31/2018. No acute complication identified.
== END 2017-10-26 18:53 | disposition home or self-care (01) ==
LOC: ED 11:01
DX: O21.0 Mild hyperemesis gravidarum (principal); Z91.010 Allergy to peanuts; Z91.018 Allergy to other foods; Z3A.08 8 weeks gestation of pregnancy
CPT/HCPCS: 36415; 76801; 76817; 80053; 84702; 85025; 96361; 96374; 99284; J2405; J7030

== ENCOUNTER 2017-11-26 11:14 | Emergency (ER) | payer MEDICAID ==
[2017-11-26 11:25] VITALS: BP 122/84
[2017-11-26 11:46] LABS: Bilirubin,Urine NEG (Negative); Blood,Urine NEG (Negative); Color,Urine Yellow (Yellow); Hyaline Casts,Urine 1 /LPF; Protein,Urine <15 mg/dL mg/dL (Negative); Urobilinogen,Urine < 2.0 mg/dL (<2.0)
[2017-11-26] MEDS ORDERED: TYLENOL PO ONE (12:07)
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
--- NOTE | 2017-11-26 15:09 | Ultrasound Report ---
FINAL REPORT PROCEDURE: US OB < = 14 WEEKS FETUS TECHNIQUE: Real-time transabdominal sonography of the uterus, placenta, amniotic fluid, adnexa, and fetus was performed with image documentation. Measurements were obtained to determine age/size. M-mode Doppler was used to document heartbeat. CPT 80545 HISTORY: preg with low abd pain COMPARISON: No prior studies are available for comparison. FINDINGS: There is a single live intrauterine gestation. BPD: 2.5 centimeters, 14 weeks 2 days. FL: 1.3 centimeters, 13 weeks 5 days. Estimated gestational age: 14 weeks 0 days. Embryonic Cardiac Activity: 152 beats per minute Gestational Sac: The placenta is posterior. There is uterine contraction, which is limits evaluation of the inferior edge of the placenta. The placenta may be low lying. Recommend sonographic follow-up Amniotic fluid: Subjectively within normal limits Cervix: 3.5 centimeters in length Right Ovary: There is a 2.2 centimeter complex cyst Left Ovary: Normal. Estimated delivery date: 05/27/2018 IMPRESSION: Single live intrauterine gestation at approximately 14 weeks 0 days. EDC by US 05/27/2018 Possible low lying placenta as described above. Recommend sonographic follow-up
== END 2017-11-26 15:33 | disposition home or self-care (01) ==
LOC: ED 11:14
DX: O44.42 Low lying placenta NOS or without hemorrhage, second trimester (principal); O26.892 Other specified pregnancy related conditions, second trimester; R10.30 Lower abdominal pain, unspecified; O99.512 Diseases of the respiratory system complicating pregnancy, second trimester; J45.909 Unspecified asthma, uncomplicated; Z3A.14 14 weeks gestation of pregnancy
CPT/HCPCS: 36415; 76801; 81001; 84702

== ENCOUNTER 2018-03-25 23:12 | Outpatient (CLI) | payer MEDICAID ==
[2018-03-25 23:36] VITALS: BP 100/66
[2018-03-25] MEDS ORDERED: LACTATED RINGERS 500 ML IV ONE (23:36)
[2018-03-25] MEDS ORDERED: LACTATED RINGERS 1,000 ML IV ONE (23:37)
[2018-03-25] MEDS ORDERED: LACTATED RINGERS 1,000 ML ONE (23:45)
[2018-03-26 00:09] LABS: Bacteria,Urine 4+ /HPF (Negative); Bilirubin,Urine NEG (Negative); Blood,Urine LG (Negative); Color,Urine Yellow (Yellow); Mucus,Urine FEW /HPF; Protein,Urine <15 mg/dL mg/dL (Negative)
[2018-03-26 00:13] LABS: RBC,Urine > 182.0 /HPF (0.0-6.0)
== END 2018-03-26 00:45 | disposition home or self-care (01) ==
LOC: TRG 23:12
PROVIDERS: ATTEND Obstetrics & Gynecology
DX: O23.43 Unspecified infection of urinary tract in pregnancy, third trimester (principal); O26.893 Other specified pregnancy related conditions, third trimester; O99.513 Diseases of the respiratory system complicating pregnancy, third trimester; J45.909 Unspecified asthma, uncomplicated; R31.9 Hematuria, unspecified; R10.9 Unspecified abdominal pain; Z3A.30 30 weeks gestation of pregnancy
CPT/HCPCS: 59025; 81001; 96360; J7120

== ENCOUNTER 2019-03-08 14:53 | Emergency (ER) | payer MEDICAID ==
--- NOTE | 2019-03-08 15:12 | Event Note ---
ED Screening Note ED Screening Note: states she has substernal CP intermittenly for a week occasional sharp pain PMHx HTN, asthma no allergies to meds states she takes verpamil non smoker non drinker no drug use This initial assessment/diagnostic orders/clinical plan/treatment(s) is/are subject to change based on patients health status, clinical progression and re- assessment by fellow clinical providers in the ED. Further treatment and workup at subsequent clinical providers discretion. Patient/guardian urged not to elope from the ED as their condition may be serious if not clinically assessed and managed. Initial orders include: EKG, CXR
[2019-03-08 16:39] LABS: Basophils % (Auto) 0.6 % (0.0-1.8); Eosinophils # (Auto) 0.3 K/mm3 (0.0-0.4); Eosinophils % (Auto) 3.8 % (0.0-4.3); Hematocrit 36.4 % (30.3-42.9); Hemoglobin 12.2 gm/dl (10.1-14.3); Lymphocytes # (Auto) 2.1 K/mm3 (1.2-5.4); Lymphocytes % (Auto) 28.1 % (13.4-35.0); Mean Corpuscular HGB Conc 34 % (30-34); Mean Corpuscular Volume 83 fl (79-97); Monocytes # (Auto) 0.4 K/mm3 (0.0-0.8); Monocytes % (Auto) 5.1 % (0.0-7.3); Platelet Count 248 K/mm3 (140-440); Red Cell Distribution Width 12.9 % (13.2-15.2)
[2019-03-08 17:01] LABS: BUN/Creatinine Ratio 13; Blood Urea Nitrogen 12 mg/dL (7-17); Calcium 8.9 mg/dL (8.4-10.2); Hemolysis Index 6
--- NOTE | 2019-03-08 17:51 | Vascular Lab Report ---
DUPLEX DOPPLER LOWER EXTREMITY VEINS, RIGHT INDICATION: RLE pain. TECHNIQUE: Duplex doppler imaging was performed through the veins of the right lower extremity using venous comp ression and other maneuvers. COMPARISON: No relevant prior imaging study available. FINDINGS: Right Common femoral vein: Negative. Right Superficial femoral vein: Negative. Right Popliteal vein: Negative. Right Calf veins: Negative. Additional findings: None.. IMPRESSION: 1. No sonographic evidence for DVT in the right lower extremity. Signer Name: Michael Conner MD Signed: 03/08/2019 5:46 PM Workstation Name: [id number]
--- NOTE | 2019-03-08 17:58 | XRay Report ---
CHEST 2 VIEWS INDICATION: CP. COMPARISON: None FINDINGS: Support devices: None. Heart: Within normal limits. Lungs: No acute air space or interstitial disease. Pleura: No significant pleural effusion. No pneumothorax. Additional findings: None. IMPRESSION: 1. No acute findings. Signer Name: Chris Ivey MD Signed: 03/08/2019 5:54 PM Workstation Name: [id number]
[2019-03-08] MEDS ORDERED: BUTALB/ACETAMINOPHEN/CAFFEINE TAB PO ONE (17:59)
--- NOTE | 2019-03-08 18:02 | Emergency Department Report ---
HPI <SAIRA MASON III - Last Filed: 03/08/19 22:17> - HPI HPI: 28-year-old -[place] female presents to the emergency department with multiple complaints. She complains of a one-week history of intermittent generalized chest pain. She also complains of a one-week history of a throbbing headache that she says is consistent with previous migraines. Lastly, the patient complains of having some pain to the right lower extremity from the calf down to the foot for the past few days. No recent travel, surgery, immobility. No previous history of DVT or PE. She denies any swelling or skin color change or rash. She has not taken anything for any of her symptoms prior to arrival. Denies any tobacco use or illicit drug use. She has a past medical history of palpitations or some type of arrhythmia for which she takes verapamil. She has a history of asthma and sickle cell trait. She goes to [facility] for primary care. 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 <MICHAELLE VIRAMONTES - Last Filed: 03/09/19 21:57> - General Chief Complaint: Chest Pain Time Seen by Provider: 03/08/19 15:10 ED Past Medical Hx <SAIRA MASON III - Last Filed: 03/08/19 22:17> - Past Medical History Previous Medical History?: Yes Hx Hypertension: No Hx Congestive Heart Failure: No Hx Diabetes: No Hx Deep Vein Thrombosis: No Hx Renal Disease: No Hx Sickle Cell Disease: Yes (trait) Hx Seizures: No Hx Asthma: Yes (albuterol last used 2wks ago) Hx COPD: No Hx HIV: No - Surgical History Past Surgical History?: No - Social History Smoking Status: Never Smoker Substance Use Type: None <MICHAELLE VIRAMONTES - Last Filed: 03/09/19 21:57> - Medications Home Medications: Home Medications Medication Instructions Recorded Confirmed Last Taken Type Gummies 1 tab PO DAILY 01/17/18 01/18/18 01/17/18 07:00 History Ferrous Sulfate [Feosol 325 MG tab] 325 mg PO BID #60 tablet 05/08/18 Unknown Rx Ibuprofen [Motrin 600 MG tab] 600 mg PO Q6HR #30 tablet 05/08/18 Unknown Rx Vit-Fe Fumar-FA [ 1 each PO QDAY #30 tablet 05/08/18 Unknown Rx Vitamin] methylPREDNISolone [Medrol 4MG 4 mg PO DAILY 6 Days #1 tab.ds.pk 03/08/19 Unknown Rx DOSEPAK (21 tabs)] ED Review of Systems ROS: Stated complaint: CHESTPAIN/LEG PAIN/HEAD PAIN Other details as noted in HPI <SAIRA MASON III - Last Filed: 03/08/19 22:17> ROS: Stated complaint: CHESTPAIN/LEG PAIN/HEAD PAIN Other details as noted in HPI Comment: All other systems reviewed and negative Constitutional: denies: chills, fever Eyes: denies: eye pain, vision change ENT: denies: ear pain, throat pain Respiratory: denies: cough, shortness of breath Cardiovascular: chest pain. denies: palpitations, edema Gastrointestinal: denies: abdominal pain, vomiting Genitourinary: denies: dysuria, discharge Musculoskeletal: myalgia. denies: back pain Skin: denies: rash, lesions Neurological: headache. denies: weakness, numbness <MICHAELLE VIRAMONTES - Last Filed: 03/09/19 21:57> Physical Exam - Physical Exam Vital Signs: Vital Signs 03/08/19 15:10 Temperature 98.3 F Pulse Rate 103 H Respiratory 16 Rate Blood Pressure 133/77 O2 Sat by Pulse 99 Oximetry <SAIRA MASON III - Last Filed: 03/08/19 22:17> - Physical Exam Vital Signs: Vital Signs 03/08/19 15:10 Temperature 98.3 F Pulse Rate 103 H Respiratory 16 Rate Blood Pressure 133/77 O2 Sat by Pulse 99 Oximetry Physical Exam: GENERAL: The patient is well-developed well-nourished. HENT: Normocephalic. Atraumatic. Patient has moist mucous membranes. EYES: Extraocular motions are intact. NECK: Supple. Trachea is midline. CHEST/LUNGS: Clear to auscultation. There is no respiratory distress noted. HEART/CARDIOVASCULAR: Regular. There is no tachycardia. There is no murmur. ABDOMEN: Abdomen is soft, nontender. Patient has normal bowel sounds. There is no abdominal distention. SKIN: Skin is warm and dry. No appreciable swelling. NEURO: The patient is awake, alert, and oriented. The patient is cooperative. The patient has no focal neurologic deficits. Normal speech. MUSCULOSKELETAL: There is some reproducible right calf pain to palpation. There is no limitation range of motion. There is no evidence of acute injury. <MICHAELLE VIRAMONTES S - Last Filed: 03/09/19 21:57> ED Course Vital Signs 03/08/19 15:10 Temperature 98.3 F Pulse Rate 103 H Respiratory 16 Rate Blood Pressure 133/77 O2 Sat by Pulse 99 Oximetry - Reevaluation(s) Reevaluation #1: Received signout from the previous doctor., Dr. Viramontes. Patient's labs were pending. Patient had d-dimer pending. Patient's d-dimer was elevated. Patient had a CTA. CTA was negative. Patient's ultrasound was negative. I reassessed patient patient's chest pain is reproducible on palpation. I discussed all results with patient. I discussed plan of care with patient. Patient agrees with plan of care. Patient is stable for discharge. Patient will be discharged home. Patient given discharge instructions. Patient voiced understanding of discharge instructions 03/08/19 22:25 <SAIRA MASON III - Last Filed: 03/08/19 22:17> Vital Signs 03/08/19 15:10 Temperature 98.3 F Pulse Rate 103 H Respiratory 16 Rate Blood Pressure 133/77 O2 Sat by Pulse 99 Oximetry <MICHAELLE VIRAMONTES S - Last Filed: 03/09/19 21:57> ED Medical Decision Making - Lab Data Result diagrams: 03/08/19 16:26 03/08/19 16:26 - EKG Data -: EKG Interpreted by Or EKG shows normal: sinus rhythm, axis, intervals, QRS complexes, ST-T waves Rate: normal - EKG Data When compared to previous EKG there are: previous EKG unavailable Interpretation: normal EKG - Radiology Data Radiology results: report reviewed, image reviewed interpreted by me: Chest x-ray is negative. CT is negative for PE. No acute findings on CTA. Ultrasound is negative for DVT. <SAIRA MASON III - Last Filed: 03/08/19 22:17> - Lab Data Result diagrams: 03/08/19 16:26 03/08/19 16:26 - EKG Data -: EKG Interpreted by Or EKG shows normal: sinus rhythm, axis, intervals, QRS complexes, ST-T waves Rate: normal - EKG Data When compared to previous EKG there are: previous EKG unavailable Interpretation: normal EKG - Medical Decision Making Patient presents with the complaints of intermittent chest pain, right leg pain including the calf and a headache. On examination there is no focal, motor or sensory deficits in her cranial nerves are intact. Her headache was mild to m oderate. She also says it is consistent with a migraine headache. For these reasons I did not think that CT imaging of the head was necessary at this time. Chest x-ray was done that does not show any pneumonia, pneumothorax, focal consolidation, or any other acute process. EKG is normal without ST elevation MO, ischemia or dysrhythmia. Due to the calf pain, a right lower extremity venous Doppler ultrasound was performed that was negative for DVT. Patient's labs were unremarkable with a slightly elevated and equivocal d-dimer level. A CT angiography of the chest was completed that did not show any PE. Vital signs stable throughout her ED course. For all these reasons the patient appears safe for discharge home at this time. She will return to the ER with any worsening of her symptoms or any acute distress. - Differential Diagnosis costochondritis, MO, DVT, PE, Migraine, Tension GOODE <MICHAELLE VIRAMONTES S - Last Filed: 03/09/19 21:57> Critical care attestation.: If time is entered above; I have spent that time in minutes in the direct care of this critically ill patient, excluding procedure time. <SAIRA MASON III - Last Filed: 03/08/19 22:17> Critical Care Time: No Critical care attestation.: If time is entered above; I have spent that time in minutes in the direct care of this critically ill patient, excluding procedure time. <MICHAELLE VIRAMONTES - Last Filed: 03/09/19 21:57> ED Disposition Is pt being admited?: No Does the pt Need Aspirin: No Time of Disposition: 22:24 <SAIRA MASON III - Last Filed: 03/08/19 22:17> Is pt being admited?: No <MICHAELLE VIRAMONTES - Last Filed: 03/09/19 21:57> Clinical Impression: Elevated d-dimer Chest pain Qualifiers: Chest pain type: unspecified Qualified Code(s): R07.9 - Chest pain, unspecified Leg pain Qualifiers: Laterality: right Qualified Code(s): M79.604 - Pain in right leg Headache Qualifiers: Headache type: unspecified Headache chronicity pattern: acute headache Intractability: not intractable Qualified Code(s): R51 - Headache Disposition: DC- TO HOME OR SELFCARE Condition: Stable Instructions: Chest Pain (ED), Costochondritis (ED) Additional Instructions: Patient to follow-up with primary care in 2-3 days. Patient to follow-up with sliver handler in 2-3 days. Patient to return to ER if condition worsens. Patient to rest. Patient to increase water. Patient to take meds as directed. Patient to avoid strenuous exercise and activity and work until cleared by sliver handler and primary care. Patient's take Tylenol or ibuprofen when necessary for pain. Patient information faxed over to cardiology group for further cardiovascular evaluation. Prescriptions: methylPREDNISolone [Medrol 4MG DOSEPAK (21 tabs)] 4 mg PO DAILY 6 Days #1 tab.ds.pk Referrals: JEFFREY AGARWAL MD [Primary Care Provider] - 2-3 Days
--- NOTE | 2019-03-08 21:46 | Cat Scan Report ---
CTA CHEST WITH IV CONTRAST INDICATION / CLINICAL INFORMATION: chest pain. elvated d dimer. TECHNIQUE: Axial CT images were obtained through the chest after injection of 100 mL IV contrast. 3 plane MIP an d/or 3D reconstructions were produced. All CT scans at this location are performed using CT dose redu ction for [facility] by means of automated exposure control. COMPARISON: Chest radiograph, 03/08/2019 FINDINGS: PULMONARY ARTERIES: No pulmonary emboli. THORACIC AORTA: No significant abnormality. HEART: No significant abnormality. CORONARY ARTERIES: No significant calcification. PLEURA: No pleural effusion. No pneumothorax. LYMPH NODES: No significant adenopathy. LUNGS: No acute air space or interstitial disease. ADDITIONAL FINDINGS: None. UPPER ABDOMEN: No acute findings. SKELETAL STRUCTURES: No significant osseous abnormality. IMPRESSION: 1. No CT evidence for pulmonary embolism. 2. No acute findings. Signer Name: Linda Pan MD Signed: 03/08/2019 9:41 PM Workstation Name: [id number]
[2019-03-08] MEDS ORDERED: KETOROLAC 30 MG/1 ML INJ IV ONE (22:20)
[2019-03-09 06:09] VITALS: BP 125/73
== END 2019-03-08 23:42 | disposition home or self-care (01) ==
LOC: ED 14:53
DX: R07.9 Chest pain, unspecified (principal); M79.604 Pain in right leg; R51 Headache; R79.1 Abnormal coagulation profile; J45.909 Unspecified asthma, uncomplicated; Z86.2 Personal history of diseases of the blood and blood-forming organs and certain disorders involving the immune mechanism
CPT/HCPCS: 36415; 71046; 71275; 80048; 84484; 84703; 85025; 85379; 93005; 93010; 93971; 96374; 99285; J1885; Q9967

== ENCOUNTER 2020-11-06 01:28 | Outpatient (CLI) | payer MEDICAID ==
[2020-11-06 02:05] VITALS: BP 107/56
[2020-11-06] MEDS ORDERED: LACTATED RINGERS 500 ML IV ONE (02:19)
[2020-11-06] MEDS: LACTATED RINGERS 1000 ML IV SOLN IV SCH ×2 (02:30→03:34)
[2020-11-06] MEDS ORDERED: ONDANSETRON 4 MG/2 ML INJ IV ONE (02:38)
[2020-11-06] MEDS ORDERED: ACETAMINOPHEN 500 MG TAB PO ONE (03:00)
== END 2020-11-06 04:19 | disposition home or self-care (01) ==
LOC: TRG 01:28 → APU 01:48 → TRG 04:19
PROVIDERS: ATTEND Obstetrics & Gynecology
DX: O21.2 Late vomiting of pregnancy (principal); R10.2 Pelvic and perineal pain; R10.9 Unspecified abdominal pain; Z3A.32 32 weeks gestation of pregnancy
CPT/HCPCS: 59025; 96361; 96374; J2405; J7120; 96360